=== PATIENT | male | born 1985 | race Caucasian/White ===

== ENCOUNTER 2019-03-31 14:00 | Emergency (ER) | payer OTHER ==
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
[2019-03-31 17:17] VITALS: BP 131/89
--- NOTE | 2019-04-01 18:45 | ASMTCMCOM ---
CM Note CM Note Notes: Late Entry from 04/01/19: Pt presented to the ED for wound care to his foot. Pt just moved to [place] and CM was requested to assist with setting up pt w/a PCP. CM called [facility] and was able to get pt an appt with SHUBHAM Aranda, on 04/02 at 9:40am. Pt states this appt time will work for him. Pt requested that the ED provider write a refill for 2 days worth of his Gabapentin 600mg TID; ED provider agreeable to this and Rxn provided. Pt pleasant and appreciative of assistance. CM faxed over ED report to [facility] (fax: [phone]) since pt is a new patient. CM available for further assistance if needed. Date Signed: 04/01/2019 06:45 PM Electronically Signed By:Judy Cassidy RN
== END 2019-03-31 17:16 | disposition home or self-care (01) ==
DX: L97.511 Non-pressure chronic ulcer of other part of right foot limited to breakdown of skin (principal); G82.20 Paraplegia, unspecified